=== PATIENT | female | born 1955 | race Asian ===

== ENCOUNTER 2020-09-19 13:54 | Emergency (ER) | payer OTHER ==
[~2020-09-19] VITALS: Ht 152.4 cm; Wt 86.4 kg
[2020-09-19 13:56] VITALS: BP 123/76
[2020-09-19] MEDS ORDERED: LISI-538 PO (14:06)
--- NOTE | 2020-09-19 14:37 | REP ---
INDICATION: Coronavirus workup. COMPARISON: No comparison study. TECHNIQUE: Portable upright AP chest radiograph. FINDINGS: There are small peripheral areas of increased pulmonary parenchymal density consistent with infiltrates in the lower lobes bilaterally and in the upper lobes. Findings compatible with viral pneumonia. Heart is not enlarged. Aorta is calcific and somewhat tortuous.. IMPRESSION: Multifocal bilateral patchy infiltrates.. <Electronically signed by Torey Ford > 09/19/20 [id number]
[2020-09-19 15:22] LABS: BASO % 0.3 % (0.0-1.0); EOS % 0.3 % (0.0-3.0); HEMATOCRIT 42.7 % (36.0-47.0); HEMOGLOBIN 14.4 g/dl (12.0-15.5); LYMPH # 2.3 10^3/uL (1.5-5.0); LYMPH % 31.7 % (24.0-44.0); MEAN CORPUSCULAR HEMOGLOBIN 29.9 pg (27.0-33.0); MEAN CORPUSCULAR HGB CONC 33.7 g/dl (32.0-36.5); MEAN CORPUSCULAR VOLUME 88.6 fl (80.0-96.0); MONO # 0.4 10^3/uL (0.0-0.8); MONO % 5.1 % (0.0-5.0); NEUTROPHILS # 4.5 10^3/uL (1.5-8.5); NEUTROPHILS % 62.2 % (36.0-66.0); PLATELET COUNT, AUTOMATED 307 10^3/uL (150-450); RED BLOOD COUNT 4.82 10^6/uL (4.00-5.40); WHITE BLOOD COUNT 7.3 10^3/uL (4.0-10.0)
[2020-09-19] MEDS ORDERED: NS 1,000 ML IV ONE (15:27)
[2020-09-19] MEDS: ALBUTEROL 90 MCG/ACT 8GM HFA INHALER INH SCH ×3 (15:31→16:34)
[2020-09-19 16:03] LABS: ALT/SGPT 55 U/L (12-78); BILIRUBIN,DIRECT 0.1 MG/DL (0.0-0.2); BILIRUBIN,TOTAL 0.3 MG/DL (0.2-1.0); C REACTIVE PROTEIN QUANTITATIV 6.09 MG/DL (0.00-0.30); CK-MB VALUE MASS 1.9 NG/ML (<3.6); CPK CREATINE PHOSPHOKINASE 453 U/L (26-192); FERRITIN 1654 NG/ML (8-252); LDH LACTATE DEHYDROGENASE 344 U/L (84-246); MB/CK RELATIVE INDEX 0.42 (< OR =4); TOTAL PROTEIN 8.5 GM/DL (6.4-8.2); TROPONIN I < 0.02 NG/ML (< 0.10)
[2020-09-21] MEDS ORDERED: CHLO125TA (10:30)
== END 2020-09-19 18:20 | disposition home or self-care (01) ==
LOC: M ED 13:54
DX: J12.82 Pneumonia due to coronavirus disease 2019 (principal); I10 Essential (primary) hypertension; Z85.3 Personal history of malignant neoplasm of breast

== ENCOUNTER 2020-09-19 18:20 | Outpatient (CLI) | payer OTHER ==
[2020-09-19] VITALS (7 sets, daily range): BP systolic 110–120; BP diastolic 56–71
--- NOTE | 2020-09-19 17:17 | IPNPDOC ---
Text Note Date of Service The patient was seen on 09/19/20. NOTE Outpatient transfusion for COVID+ patient encounter 65-year-old female just arrived after trip to the [facility] 28 hours involving 3 flights layovers in [facility] in [place]. She has a daughter home supports and cares for her if needed. She has a history of hypertension but not currently taking medications. She also has a history of breast cancer and is on tamoxifen. Patient is COVID19+ will be receiving Monocolonal antibodies casirvimab and Imdevimab infusion therapy per hospital infusion policy. Patient has been feeling tired at home with a headache some diarrhea cough and muscle aches for the past few days which prompted him to come to the ER for visit. Patient does not meet criteria to be admitted to the hospital. Patient is breathing at 95% on room air and does not dipped below 90% on ambulation. When I saw her she is walking around her room and eating soup and appeared very comfortable. Patient will receive the infusion and then be discharged to home. On exam patient was resting comfortably lungs were clear to auscultation bilaterally with no crackles or wheezing. Regular heart rate. Patient was calm awake and answering all questions appropriately. Is able to speak in full sentences without appearing short of breath. Her abdomen was soft and nontender with positive bowel sounds. Consent was obtained with patient and signed in the chart. YSABEL ANTONIO MD Sep 19, 2020 17:17
[~2020-09-19 18:20] MED LIST: ACETAMINOPHEN TAB 650MG DOSE (2X325MG) PO ONE; ALBUTEROL 90 MCG/ACT 8GM HFA INHALER INH PRN; ALBUTEROL SULFATE 2.5 MG/0.5 ML INH NEB SOLN INH PRN; EPINEPHrine INJ 1 MG/ML 1ML AMP IM PRN; LISI-538 PO; NS 1,000 ML IV SCH; diphenhydrAMINE 25MG CAP PO ONE; diphenhydrAMINE 50MG/ML VIAL (J1200) IV PRN; methylPREDNISolone 125MG 2ML VIAL IV PRN
[2020-09-19] MEDS ORDERED: CASIRIVIMAB (REGN10933) 1,200 MG, IMDEVIMAB (REGN10987) 1,200 MG in NS 230 ML IV ONE (18:30)
[2020-09-21] MEDS ORDERED: CHLO125TA (10:30)
== END 2020-09-19 21:28 | disposition home or self-care (01) ==
LOC: M OPCLI4 18:20 → M ICU 18:21 → M OPCLI4 21:28
PROVIDERS: ATTEND Family Medicine
DX: U07.1 COVID-19 (principal)